=== PATIENT | male | born 1945 | race Caucasian/White ===

== ENCOUNTER → 2022-11-18 | Outpatient (CLI) | payer OTHER ==
--- NOTE | 2022-11-18 17:48 | DIREP ---
PROCEDURE:CHEST 2 VIEWS COMPARISON:ASSCHA Gunderson, XRAY CHEST SINGLE VW, 06/12/2020, 09:39 AM. INDICATIONS:Z00.00 Encounter for general adult medical examination without abnormal fin FINDINGS: LUNGS/PLEURA:Linear scarring/atelectasis within the right mid lung field. No focal consolidation, pleural effusion, or pneumothorax. VASCULATURE:Unremarkable pulmonary vasculature. Calcified, tortuous aorta. CARDIAC:Normal. No cardiac silhouette abnormality or cardiomegaly. MEDIASTINUM:Normal. No visible mass or adenopathy. BONES:Degenerative change without evidence of acute osseus abnormality. OTHER:Negative. CONCLUSION: 1. No acute cardiopulmonary process. Dictated by: Mp Patiño MD on 11/18/2022 at 05:46 PM
== END | disposition home or self-care (01) ==
LOC: RAD 12:57
PROVIDERS: ATTEND Nurse Practitioner
DX: M47.814 Spondylosis without myelopathy or radiculopathy, thoracic region (principal); Z00.00 Encounter for general adult medical examination without abnormal findings
CPT/HCPCS: 71046